=== PATIENT | female | born 1975 | race Native Hawaiian/Other Pacific Islander ===

== ENCOUNTER 2017-02-04 11:14 | Outpatient (CLI) | payer OTHER ==
[~2017-02-04 11:14] MED LIST: ALBU0.5N6 IN; LORA0.5T17 PO; LORCET HD 10-321 TAB PO; PANT40TA PO; SINGULAIR10 MG PO; SYMBICORT1 AE1 IN; TRAMADOL HCL100 M1 PO; VENLAFAXINE150 M1 PO
== END 2017-02-04 20:02 | disposition home or self-care (01) ==
LOC: RAD 11:14
DX: M25.562 Pain in left knee (principal); M25.561 Pain in right knee